=== PATIENT | female | born 1965 | race African-American/Black ===

== ENCOUNTER 2021-01-11 08:20 | Emergency (ER) | payer MEDICAID ==
[~2021-01-11] VITALS: Ht 170.2 cm; Wt 91.0 kg
[2021-01-11] MEDS ORDERED: ONDANSETRON HCL 4MG/2ML INJ IV STA (08:41)
[2021-01-11] MEDS ORDERED: HYDROCODONE/ACETAMINOPHEN 5/325MG TABLET PO ONE (08:45)
[2021-01-11] MEDS ORDERED: SODIUM CHLORIDE 0.9% 1,000 ML IV ONE (08:45)
[2021-01-11 09:24] LABS: BASOPHILS % 1.2 % (0.0-2.0); EOSINOPHILS % 1.8 % (0.0-5.0); HEMATOCRIT. 43.1 % (36.0-48.0); HEMOGLOBIN. 14.3 g/dL (12.0-16.0); LYMPHOCYTES % 41.4 % (20.0-50.0); MEAN CORPUSCULAR HEMOGLOBIN 33.1 pg (28.0-32.0); MEAN CORPUSCULAR VOLUME 99.6 fL (81.0-99.0); MEAN PLATELET VOLUME 8.8 fl (7.4-10.4); MONOCYTES % 8.3 % (2.0-8.0); NEUTROPHILS % 47.3 % (40.0-76.0); PLATELET 248 x1000/uL (130-400); RED BLOOD CELL COUNT 4.33 mill/uL (4.2-5.4); RED CELL DISTRIBUTION WIDTH 14.3 % (11.6-14.6)
[2021-01-11 09:26] LABS: CHLORIDE 103 mEq/L (98-107)
[2021-01-11] MEDS ORDERED: IOHEXOL-300 100 ML BOTTLE ONE (10:32)
[2021-01-11] MEDS ORDERED: CLIN300C12 MT (11:22)
[2021-01-11] MEDS ORDERED: HYDR-4001 MT (11:22)
[2021-01-11] MEDS ORDERED: CHLO473M2 MT (11:23)
[2021-01-11 12:18] VITALS: BP 119/64
== END 2021-01-11 12:26 | disposition home or self-care (01) ==
LOC: ER 08:50
DX: K08.89 Other specified disorders of teeth and supporting structures (principal); J45.909 Unspecified asthma, uncomplicated; I10 Essential (primary) hypertension; Z88.0 Allergy status to penicillin; Z86.73 Personal history of transient ischemic attack (TIA), and cerebral infarction without residual deficits
CPT/HCPCS: 36415; 70491; 71045; 71260; 80048; 83880; 84484; 85025; 93005; 96361; 96374; 99285; J2405; J7030; Q9967